=== PATIENT | male | born 1985 | race Two or more races ===

== ENCOUNTER 2025-08-31 08:02 | Inpatient (IN) | payer OTHER ==
[~2025-08-31] VITALS: Ht 170.2 cm; Wt 75.0 kg
[2025-08-31] MEDS ORDERED: ONDANSETRON HCL/PF 4 MG/2 ML VIAL ONE (08:52)
[2025-08-31] MEDS ORDERED: KETOROLAC TROMETHAMINE 15 MG/ML VIAL ONE (08:52)
[2025-08-31] MEDS: KETOROLAC TROMETHAMINE 15 MG/ML VIAL IV ONE (09:05)
[2025-08-31] MEDS: IV NS 0.9% 1,000 ML BAG IV ONE (09:12)
[2025-08-31] MEDS: ONDANSETRON HCL/PF 4 MG/2 ML VIAL IVP ONE (09:13)
[2025-08-31 09:51] LABS: PLATELET COUNT (AUTO) 287 K/uL (150-450); RED BLOOD CELL COUNT(AUTO) 4.33 MIL/uL (4.5-6.0); RED CELL DISTRIBUTION WIDTH 13.5 % (11.5-15.0); WHITE BLOOD COUNT (AUTO) 5.6 K/uL (4.3-11.0)
[2025-08-31 10:10] LABS: ASPARTATE AMINOTRANSFERASE 20.0 U/L (15-37); CALCIUM, SERUM 9.1 mg/dL (8.5-10.1); CREATININE 1.0 mg/dL (0.6-1.3); SODIUM SERUM 139.0 mmol/L (136-145); TOTAL PROTEIN, SERUM 7.0 g/dL (6.4-8.2); UREA NITROGEN, BLOOD 11.0 mg/dL (7-18)
[2025-08-31] MEDS ORDERED: DICYCLOMINE HCL INJ 20 MG/2 ML AMPUL IM ONE (10:58)
[2025-08-31] MEDS: DICYCLOMINE HCL INJ 20 MG/2 ML AMPUL IM ONE (11:04)
[2025-08-31] MEDS ORDERED: LORAZEPAM INJ 2 MG/ML VIAL ONE (11:35)
[2025-08-31] MEDS: LORAZEPAM INJ 2 MG/ML VIAL IV ONE (11:42)
[2025-08-31 13:40] VITALS: BP 142/93; TEMP 97.2; O2SAT 98
[2025-08-31 14:00] VITALS: BP 142/93; TEMP 97.2; O2SAT 98
[2025-08-31] MEDS ORDERED: MAGNESIUM HYDROXIDE 30 ML UDC PO PRN (14:00)
[2025-08-31] MEDS ORDERED: MAG HYDROX/AL HYDROX/SIMETH 30 ML UDC PO PRN (14:00)
[2025-08-31] MEDS ORDERED: ACETAMINOPHEN 325 MG TABLET PO PRN (14:00)
[2025-08-31] MEDS: ENOXAPARIN SODIUM 40 MG/0.4 ML DISP.SYRIN SQ SCH (16:33)
[2025-08-31] MEDS: IV NS 0.9% 1,000 ML IV PRN (16:34)
[2025-08-31] MEDS: ONDANSETRON HCL/PF 4 MG/2 ML VIAL IVP PRN (18:02)
[2025-08-31 20:00] VITALS: BP 137/71; TEMP 98.2; O2SAT 99
[2025-08-31] MEDS: MORPHINE SULFATE INJ 2 MG/ML DISP.SYRIN IV PRN (20:00)
[2025-09-01 07:08] LABS: PLATELET COUNT (AUTO) 350 K/uL (150-450); RED BLOOD CELL COUNT(AUTO) 4.48 MIL/uL (4.5-6.0); RED CELL DISTRIBUTION WIDTH 13.4 % (11.5-15.0); WHITE BLOOD COUNT (AUTO) 9.3 K/uL (4.3-11.0)
[2025-09-01 07:44] LABS: CALCIUM, SERUM 8.8 mg/dL (8.5-10.1); CREATININE 1.1 mg/dL (0.6-1.3); PHOSPHORUS 3.3 mg/dL (2.5-4.9); SODIUM SERUM 140.0 mmol/L (136-145); UREA NITROGEN, BLOOD 8.0 mg/dL (7-18)
[2025-09-01 08:00] VITALS: BP 136/75; TEMP 98.2; O2SAT 100
[2025-09-01] MEDS: PANTOPRAZOLE 40 MG VIAL IV SCH (10:52)
[2025-09-01 17:00] VITALS: BP 124/85; TEMP 98.2; O2SAT 100
[2025-09-01 20:00] VITALS: BP 111/63; TEMP 98.1; O2SAT 98
[2025-09-02 08:00] VITALS: BP 142/78; TEMP 97.9; O2SAT 100
[2025-09-03] MEDS ORDERED: PANTOPRAZOLE 40 MG TABLET.DR PO SCH (09:00)
== END 2025-09-02 10:22 | disposition home or self-care (01) | DRG 249 ==
LOC: ER 08:05 → MED 12:51
PROVIDERS: ADMIT Nurse Practitioner Family; ATTEND Nurse Practitioner Acute Care
DX: R11.16 Cannabis hyperemesis syndrome (principal); D68.59 Other primary thrombophilia; F12.188 Cannabis abuse with other cannabis-induced disorder; E86.0 Dehydration; Z99.3 Dependence on wheelchair; K59.00 Constipation, unspecified; Z98.890 Other specified postprocedural states; Z87.828 Personal history of other (healed) physical injury and trauma; Z88.8 Allergy status to other drugs, medicaments and biological substances; Z59.00 Homelessness unspecified; M16.11 Unilateral primary osteoarthritis, right hip
CPT/HCPCS: 36415; 80048-TC; 80076-TC; 83690-TC; 83735-TC; 84100-TC; 85025-TC; 87081-TC; A4223; G0378; J0500; J1650; J1885; J2060; J2270; J2405; J2470; J7030

== ENCOUNTER 2025-09-18 07:48 | Emergency (ER) | payer OTHER ==
[~2025-09-18] VITALS: Ht 170.2 cm; Wt 73.5 kg
[2025-09-18 08:41] LABS: PLATELET COUNT (AUTO) 370 K/uL (150-450); RED BLOOD CELL COUNT(AUTO) 4.46 MIL/uL (4.5-6.0); RED CELL DISTRIBUTION WIDTH 13.2 % (11.5-15.0); WHITE BLOOD COUNT (AUTO) 6.7 K/uL (4.3-11.0)
[2025-09-18 08:49] LABS: CALCIUM, SERUM 9.6 mg/dL (8.5-10.1); CREATININE 1.0 mg/dL (0.6-1.3); SODIUM SERUM 137.0 mmol/L (136-145); UREA NITROGEN, BLOOD 13.0 mg/dL (7-18)
[2025-09-18 09:04] LABS: ASPARTATE AMINOTRANSFERASE 23.0 U/L (15-37); NT-PRO BNP 9.0 pg/mL (0-125); TOTAL PROTEIN, SERUM 8.4 g/dL (6.4-8.2)
[2025-09-18] MEDS ORDERED: FUROSEMIDE 40 MG/4 ML VIAL ONE (09:24)
[2025-09-18] MEDS: FUROSEMIDE 40 MG/4 ML VIAL IV ONE (09:27)
[2025-09-18 11:04] VITALS: BP 128/75; TEMP 98.7; O2SAT 99
== END 2025-09-18 11:06 | disposition home or self-care (01) ==
LOC: ER 07:52
DX: R60.0 Localized edema (principal); R06.02 Shortness of breath; Z59.00 Homelessness unspecified
CPT/HCPCS: 99283; 96374; 85025; 36415; 80053; 83880; J1938